=== PATIENT | male | born 1950 | race Caucasian/White ===

== ENCOUNTER 2019-09-30 15:44 | Emergency (ER) | payer MEDICARE, OTHER, SELFPAY ==
[2019-09-30 16:21] VITALS: TEMP 37.1; BMI 29.6
[2019-09-30 16:48] LABS: Basophils % 0.3 %; Hematocrit 43.6 % (42.0-52.0); Hemoglobin 14.6 g/dL (11.7-16.6); Lymphocytes # 0.2 10^3/uL (0.8-4.8); Lymphocytes % 2.9 %; Mean Corpuscular HGB Conc 33.5 g/dL (30.0-36.0); Mean Corpuscular Hemoglobin 28.6 pg (28.0-34.0); Mean Corpuscular Volume 85.3 fL (80-94); Mean Platelet Volume 9.4 fL (7.4-10.4); Monocytes # 0.3 10^3/uL (0.2-0.9); Monocytes % 3.6 %; Neutrophils # 6.4 10^3/uL (1.8-7.7); Neutrophils % 92.8 %; Nucleated Red Blood Cells % 0 %; Platelet Count 208 10^3/cmm (130-400); Red Blood Count 5.11 10^6/uL (4.1-5.3); Red Cell Distribution Width 12.8 % (12.1-15.1); White Blood Count 6.9 10^3/uL (4.0-10.0)
[2019-09-30 17:04] LABS: Alanine Aminotransferase 22 U/L (0-41); Albumin Level 4.9 g/dL (3.5-5.2); Alkaline Phosphatase 88 IU/L (40-130); Anion Gap 19.1 (5-19); Aspartate Amino Transferase 19 U/L (0-40); Blood Urea Nitrogen 27 mg/dL (8-23); Calcium 9.9 mg/dL (8.5-10.5); Carbon Dioxide 25 mmol/L (22-29); Chloride 99 mmol/L (98-107); Globulin 3.4 g/dL (1.3-4.6); Glomerular Filtration Rate 46.4 mL/min (90-130); Glucose 199 mg/dL (74-106); Lipase 20 U/L (13-60); Potassium 5.1 mmol/L (3.5-5.1); Sodium 138 mmol/L (136-145); Total Bilirubin 0.7 mg/dL (0.15-1.2); Total Protein 8.3 g/dL (6.6-8.7)
[2019-09-30 19:07] VITALS: BP 134/78; PULSE 111; RESP 18; O2SAT 96
--- NOTE | 2019-09-30 19:11 | PC.NURSE ---
Patient reports that he has been sick for about 3 weeks with cough and congestion. Patient states that today he began to vomit and get dizzy. Patients reports they checked the patients blood pressure and his blood pressure was low so they called his PCP and they wanted him to go to the ER.
--- NOTE | 2019-09-30 19:31 | ECG_ITS ---
Measurements Intervals [place] Rate: 98 P: 41 [place]: 163 QRS: 64 QRSD: 98 T: 50 QT: 350 QTc: 447 SINUS RHYTHM No previous ECG available for comparison Electronically Signed On 10-01-2019 16:17:09 CUSTOMS AND BORDER PROTECTION OFFICER by Bayron Garzon M.D. [email or web address]
--- NOTE | 2019-09-30 19:32 | ED_ITS ---
HPI - General Adult General: Chief complaint: General Medical Stated complaint: n/v Time Seen by Provider: 09/30/19 19:24 History of Present Illness: HPI narrative: Patient has been feeling bad for the last 3 to 4 days start with a head cold and chest congestion for about 3 to 4 weeks. Then he had an episode of vomiting and a blood pressure was low we vomited couple more times said he had to come in. Feels better now. MD complaint: low blood pressure Onset (ago): hour(s) Associated symptoms: Reports nausea and vomiting; Deny chest pain, dyspnea, headache(s) or rash Review of Systems Const: Denies: fever, chills or body aches Eyes: Denies: change in vision or blurry vision ENMT: Reports: nasal congestion; Denies: throat pain Card: Denies: chest pain or shortness of breath on exertion Resp: Denies: shortness of breath, productive cough or non-productive cough GI: Reports: nausea and vomiting; Denies: abdominal pain : Denies: difficulty urinating Musc: Denies: extremity pain Skin/Breast: Denies: rash Neuro: Denies: headache Psych: Denies: anxiety or depression Arjun/Lymph: Denies: easy bruising PFSH ED PFSH: Statuses (acute, chronic, etc) shown below reflect problem list status as previously entered and may not be historically accurate Social History Smoking and tobacco status: never smoked Quit status (tobacco): has quit using tobacco Year quit tobacco: 2004 Alcohol intake: unknown Household members: spouse Marital status: Physical Exam Const: COMMON NORMALS: no apparent distress, average body habitus and oriented x3 HENMT: COMMON NORMALS: normocephalic HEAD & SCALP: normal to inspection and normocephalic FACE & SINUS: normal facial exam Eye: COMMON NORMALS: conjunctivae normal GENERAL EYE: normal appearance of both eyes CONJUNCTIVA: Yes conjunctivae normal Neck/C-Spine: COMMON NORMALS: no JVD Chest: COMMONS NORMALS: inspection of chest normal Resp: COMMON NORMALS: normal respiratory effort and clear to auscultation bilaterally AUSCULTATION: clear to auscultation bilaterally Cardio: COMMON NORMALS: no JVD, regular rate and regular rhythm RATE: regular rate RHYTHM: regular rhythm GI: COMMON NORMALS: normal to inspection, nondistended, normoactive bowel sounds Extremity: COMMON NORMALS: normal to inspection and full ROM Neuro: COMMON NORMALS: oriented x3 Course Vital Signs: Vital signs: Vital Signs Temperature 98.8 F 09/30/19 16:21 Pulse Rate 89 09/30/19 19:39 Respiratory Rate 15 09/30/19 19:35 Blood Pressure 124/72 09/30/19 19:39 Pulse Oximetry 95 09/30/19 19:35 [facility] - General Adult Lab Data: Labs: Lab Results 09/30/19 09/30/19 09/30/19 Range/Units 16:42 16:42 19:59 WBC 6.9 (4.0-10.0) 10^3/ uL RBC 5.11 (4.1-5.3) 10^6/u L Hgb 14.6 (11.7-16.6) g/dL Hct 43.6 (42.0-52.0) % MCV 85.3 (80-94) fL MCH 28.6 (28.0-34.0) pg MCHC 33.5 (30.0-36.0) g/dL RDW 12.8 (12.1-15.1) % Plt Count 208 (130-400) 10^3/c mm MPV 9.4 (7.4-10.4) fL Neut % (Auto) 92.8 % Lymph % (Auto) 2.9 % [place] % (Auto) 3.6 % Eos % (Auto) 0.0 % Baso % (Auto) 0.3 % Neut # (Auto) 6.4 (1.8-7.7) 10^3/u L Lymph # (Auto) 0.2 L (0.8-4.8) 10^3/u L [place] # (Auto) 0.3 (0.2-0.9) 10^3/u L Eos # (Auto) 0.0 (0.0-0.8) 10^3/u L Baso # (Auto) 0.0 (0.0-0.1) 10^3/u L Nucleated RBC % (a uto) 0 % Nucleated RBCs # 0.0 /100WBC Sodium 138 (136-145) mmol/L Potassium 5.1 (3.5-5.1) mmol/L Chloride 99 (98-107) mmol/L Carbon Dioxide 25 (22-29) mmol/L Anion Gap 19.1 H (5-19) BUN 27 H (8-23) mg/dL Creatinine 1.5 H (0.7-1.2) mg/dL GFR Calculation 46.4 L (90-130) mL/min Glucose 199 H (74-106) mg/dL Calcium 9.9 (8.5-10.5) mg/dL Total Bilirubin 0.7 (0.15-1.2) mg/dL AST 19 (0-40) U/L ALT 22 (0-41) U/L Alkaline Phosphata se 88 (40-130) IU/L Total Protein 8.3 (6.6-8.7) g/dL Albumin 4.9 (3.5-5.2) g/dL Globulin 3.4 (1.3-4.6) g/dL Lipase 20 (13-60) U/L Urine Color Yellow (Yellow) Urine Appearance Clear (CLEAR) Urine pH 5 (5-7) Ur Specific Gravit y 1.020 (1.005-1.030) Urine Protein Neg (Negative) Urine Glucose (UA) Norm (Normal) Urine Ketones 1+ H (Negative) Urine Occult Blood Neg (Negative) Urine Nitrate Negative (Negative) Urine Bilirubin Neg (NEGATIVE) Urine Urobilinogen Norm (Negative) mg/dL Ur Leukocyte Idalmis ase Negative (Negative) EKG Data^: EKG 1: EKG interpretation date: 09/30/19 EKG interpretation time: 20:21 Interpretation: NSR, 98bpm Discharge Plan Discharge Prescriptions: No Action ranolazine [Ranexa] 500 mg tablet extended release 12 hr 500 mg PO BID RF: 0 isosorbide mononitrate 30 mg tablet extended release 24 hr 30 mg PO QDAY 90 Days Qty: 90 RF: 3 cetirizine [All Day Allergy (cetirizine)] 10 mg tablet 10 mg PO DAILY RF: 0 metformin 500 mg tablet extended release 24hr 2,000 mg PO DAILY RF: 0 simvastatin 40 mg tablet 40 mg PO .Bedtime RF: 0 clopidogrel 75 mg tablet 75 mg PO DAILY RF: 0 fluticasone propionate [Allergy Relief (fluticasone)] 50 mcg/actuation spray,suspension 2 spray INTRANASAL DAILY RF: 0 montelukast 10 mg tablet 10 mg PO DAILY RF: 0 olopatadine [Pataday] 0.2 % drops 1 drop ophthalmic (eye) QAM RF: 0 lisinopril 2.5 mg tablet 2.5 mg PO DAILY RF: 0 tamsulosin 0.4 mg capsule 0.4 mg PO .Bedtime RF: 0 Tradjenta 5 mg tablet 5 mg PO QAM RF: 0 Coding Level of Care Code ED Jewel Diameter Gauger for Chg Fwd Exam Problem Focused
--- NOTE | 2019-09-30 19:34 | XR_ITS ---
WS: [id number] PORTABLE CHEST HISTORY: Hypotension. COMPARISON: None available. Lungs are clear and well expanded. No pleural effusion or pneumothorax. Cardiac size: Normal. Mediastinum/Aorta: Normal mediastinum. No osseous abnormality seen. XR/XR chest 1V portable [id number] IMPRESSION: Unremarkable portable chest.
[2019-09-30 19:35] VITALS: BP 120/80; PULSE 100; RESP 15; O2SAT 95
[2019-09-30 19:39] VITALS: BP 112/69; BP 121/74; BP 124/72; PULSE 119; PULSE 126; PULSE 89
[2019-09-30 20:05] LABS: Lactate (Lactic Acid level) 2.3 mmol/L (0.5-2.2)
[2019-09-30 20:09] LABS: Add Urine Microscopic? NO
[2019-09-30 20:18] LABS: Bilirubin Urine Neg (NEGATIVE); Blood Urine Neg (Negative); Glucose Urine UA Norm (Normal); Ketones Urine 1+ (Negative); Leukocyte Esterase Urine Negative (Negative); Nitrate Urine Negative (Negative); Protein Urine Neg (Negative); Urine Appearance Clear (CLEAR); Urine Color Yellow (Yellow); Urobilinogen Urine Norm (Negative); pH Urine 5 (5-7)
[2019-09-30 20:27] LABS: Troponin T (5th) Once 18 ng/mL (0-15)
[2019-09-30 20:35] LABS: Lipase 15 U/L (13-60)
[2019-09-30] MEDS: sulfamethoxazole-trimeth DS 160-800 mg Tablet 1 TAB PO (21:23)
[2019-09-30 21:25] VITALS: BP 111/54; PULSE 97; RESP 16; TEMP 37; O2SAT 96
[2019-09-30 21:44] VITALS: BP 111/54; PULSE 97; RESP 16; TEMP 37; O2SAT 96
== END 2019-09-30 21:27 | disposition home or self-care (01) ==
PROVIDERS: Emergency Medicine; Emergency Provider Nurse Practitioner Family; Family Provider Nurse Practitioner Family; PCP Nurse Practitioner Family
DX: R09.89 Other specified symptoms and signs involving the circulatory and respiratory systems (principal); Z79.02 Long term (current) use of antithrombotics/antiplatelets; Z79.84 Long term (current) use of oral hypoglycemic drugs; Z87.891 Personal history of nicotine dependence
CPT/HCPCS: 36415; 71045; 80053; 81003; 83605; 83690; 84484; 85025; 93005; 99282

== ENCOUNTER → 2019-11-05 11:06 | Outpatient (BNVA) | payer OTHER, MEDICARE, SELFPAY | PROVIDERS: Visit Provider Family Medicine | DX: E11.9 Type 2 diabetes mellitus without complications (principal) | CPT/HCPCS: 80053; 80061; 82044; 83036; 85025 ==

== ENCOUNTER → 2020-03-11 09:42 | Outpatient (BNVA) | payer MEDICARE, OTHER, SELFPAY | PROVIDERS: Visit Provider Nurse Practitioner Family | DX: E11.9 Type 2 diabetes mellitus without complications (principal); Z79.4 Long term (current) use of insulin | CPT/HCPCS: 80053; 80061; 83036; 85025 ==

== ENCOUNTER → 2020-04-14 11:30 | Outpatient (BNVA) | payer MEDICARE, OTHER, SELFPAY | PROVIDERS: PCP Nurse Practitioner Family; Visit Provider Nurse Practitioner Family | DX: E11.22 Type 2 diabetes mellitus with diabetic chronic kidney disease; N18.3 Chronic kidney disease, stage 3 (moderate); Z79.4 Long term (current) use of insulin | CPT/HCPCS: 80053 ==

== ENCOUNTER → 2020-04-22 08:51 | Outpatient (BNVA) | payer MEDICARE, OTHER, SELFPAY | PROVIDERS: PCP Nurse Practitioner Family; Referring Provider Nurse Practitioner Family; Visit Provider Internal Medicine | DX: E11.8 Type 2 diabetes mellitus with unspecified complications (principal); I10 Essential (primary) hypertension; E11.22 Type 2 diabetes mellitus with diabetic chronic kidney disease; N18.3 Chronic kidney disease, stage 3 (moderate); E78.5 Hyperlipidemia, unspecified; E66.9 Obesity, unspecified; Z59.6 Low income; E11.59 Type 2 diabetes mellitus with other circulatory complications; I25.10 Atherosclerotic heart disease of native coronary artery without angina pectoris | CPT/HCPCS: 99204 ==

== ENCOUNTER 2020-04-27 09:09 | Observation (INO) | payer MEDICARE, OTHER, SELFPAY ==
[2020-04-24 07:30] LABS: Anion Gap 14.9 (5-19); Basophils % 0.7 %; Blood Urea Nitrogen 26 mg/dL (8-23); Calcium 9.1 mg/dL (8.5-10.5); Carbon Dioxide 25 mmol/L (22-29); Chloride 101 mmol/L (98-107); Eosinophils % 0.3 %; Glomerular Filtration Rate 40.2 mL/min (90-130); Glucose 275 mg/dL (65-115); Hematocrit 39.6 % (42.0-52.0); Hemoglobin 13.4 g/dL (11.7-16.6); Lymphocytes # 1.2 10^3/uL (0.8-4.8); Mean Corpuscular HGB Conc 33.8 g/dL (30.0-36.0); Mean Corpuscular Hemoglobin 29.7 pg (28.0-34.0); Mean Corpuscular Volume 87.8 fL (80-94); Mean Platelet Volume 10.4 fL (7.4-10.4); Monocytes # 0.5 10^3/uL (0.2-0.9); Monocytes % 7.9 %; Neutrophils # 4.28 10^3/uL (1.8-7.7); Neutrophils % 70.6 %; Nucleated Red Blood Cells % 0 %; Osmolality Calculated 291 mOsm/kg (285-295); Platelet Count 243 10^3/cmm (130-400); Potassium 3.9 mmol/L (3.5-5.1); Red Blood Count 4.51 10^6/uL (4.1-5.3); Sodium 137 mmol/L (136-145); White Blood Count 6.1 10^3/uL (4.0-10.0)
[2020-04-27] VITALS (18 sets, daily range): BP systolic 98–151; BP diastolic 61–82; PULSE 56–79; RESP 12–23; TEMP 36.6; O2SAT 93–98; BMI 30.4
--- NOTE | 2020-04-27 07:30 | XACV_ITS ---
Ht: 173 cm Wt: 89 kg BSA: 2.09 m2 Gender: Male : 1950 Any Known Allergies: No known allergies Exam Priority: Routine Procedure(s): Procedure Description: Diagnostic procedure Procedure Description: Left Heart Catheterization Procedure Description: Left ventriculography Procedure Description: Coronary Angiography Diagnostic Cath Status: Elective Diagnostic Findings The left main is a medium caliber vessel which appears to have around 30% narrowing in the distal segment. Mild diffuse calcification was noted in the artery. The left anterior descending artery is a medium caliber vessel which appears to wrap around the LV apex. The artery was found to have diffuse irregular narrowing ranging anywhere from 30 to 50%. Around the LV apex, there was a high-grade lesion of around 95%. The left and descending artery gives off small diagonal and septal perforators which are found to have moderate ostial narrowing.There is a high diagonal branch which also appears to have mild to moderate diffuse disease in the proximal segment. There are multiple small diagonal and septal perforators which are found to have moderate ostial narrowing. There is a high diagonal branch(intermedius artery) which also appears to have mild to moderate diffuse disease in the proximal segment. It gives of a side branch which has diffuse narrowing from 50% proximally. The circumflex artery is a medium caliber vessel which was found to have an ostial narrowing of around 40%. It gives of a rudimentary AV groove branch. The first obtuse marginal branch was found to have around 50% tapering narrowing proximally. No other significant stenotic lesions were noted. The intermedius artery is a small caliber vessel with no significant stenotic lesions. The right coronary artery is a medium caliber dominant vessel which was found to have a long stented segment proximally. The distal end of the stented area was found to have around 40 to 50% in-stent narrowing . The distal artery was found to have 20 to 30% diffuse narrowing. No other significant stenotic lesions were noted. Conclusions This is a 69-year-old white male with history of coronary disease and previous PCI, presenting with exertional chest tightness/shortness of breath/fatigue. He had a myocardial perfusion imaging which revealed of some small areas of reversible defects. His symptoms are somewhat atypical. However in view of the ongoing symptoms, in order to further evaluate his coronary status, a cardiac catheterization was recommended. Patient underwent a left heart catheterization with left and right coronary angiogram today. He was found to have mild to moderate diffuse coronary artery disease. There was a high-grade lesion in the distal LAD, around the LV apex. The stented segment of the right coronary artery was found to be patent with 40 to 50% in-stent stenosis. LVEDP was 20 mmHg. Recommendations Continue current medical management and risk factor modification. Diagnostic RX Recommendation: medical therapy and/or counseling LV EDP: 20 mmHg Pressures Phase:Rest AO : 109 mmHg / 57 mmHg ( 80 mmHg ) @ 3:48:00 AM 118 mmHg / 35 mmHg ( 70 mmHg ) @ 3:48:00 AM 173 mmHg / 76 mmHg ( 97 mmHg ) @ 3:49:00 AM 113 mmHg / 88 mmHg ( 93 mmHg ) @ 3:53:00 AM LV : 128 mmHg / -2 mmHg / @ 3:48:00 AM 128 mmHg / -5 mmHg / @ 3:48:00 AM Valves Phase:DefaultPhase AV : 20.0 mmHg @ 9:05:30 AM AV Mean Gradient: 10.0 mmHg @ 9:05:30 AM Clinical Evaluation EBL: 5mL-10mL Procedural Details Procedure Consent Obtained. Pre-Procedure Time Out. Identified patient by full name and date of as verbalized by the patient/guarantor. Does the consent match the physician's order: Yes. Accurate & Complete Informed Consent: Yes. Inpatient/Outpatient History & Physical on Chart: Yes. If H&P is completed, is and addenduem needed: N/A; If yes, is the addendum complete: N/A. Visualize and Verify Site with Patient/Guarantor: N/A. Relevant Radiology Images available: Yes. Pre-op teaching completed and patient verbalized understanding. The risks, benefits, and alternatives of sedation and/or procedure were discussed by physician. The patient agrees to continue. Procedure started. Correct patient, site and procedure confirmed by cath team. PERRLA. Strong, equal hand loan officer bilaterally. Lungs clear x 5 lobes. IV Site on Arrival: 20 gauge in the left anticubital. IV Fluids: 0.9% NaCl at KVO. 0 mL infused prior to slab conditioner supervisor. Pre Procedural Pulses: bilateral dorsalis pedis was 1+. Pre Procedural Pulses: bilateral posterior tibial was 1+. Oxygen started at 2liters/min via nasal canula. right groin was prepped with chloroprep then draped in the usual sterile fashion. right radial was prepped with chloroprep then draped in the usual sterile fashion. Physician notified. Baseline sample Acquired. HR: 57 BPM. Physician arrived. Equipment: 6F - Radial. Cardiac Cath Pack. ACIST Manifold Kit Model BT 2000. Heparinized Saline (2 units/mL), 1000 mL bag. Physician scrubbed in. Immediate Pre-Procedure Time Out. Correct Patient: Yes; Correct Procedure: Yes; Correct Site: Yes; Correct Patient Position: Yes; Correct Supplies: Yes; Dried Flammable Prep: Yes; Blood Products Available: No;. Lidocaine 1% infiltrated to the right radial. Arterial access obtained. A 5 macedonian Rojelio catheter in over wire. EDP Sample taken: LV 128/-3,21; HR: 72 BPM; SpO2: 93%. Pullback taken: LV 128/-6,15; AO 109/57(80); Mean: 10mmHg, Peak to Peak: 20mmHg, SEP: 21sec/min; HR: 71 BPM; SpO2: 93%. Multiple views taken of left coronary artery. Catheter redirected to the RCA. Multiple views taken of right coronary artery. Catheter out. Dr. Issa scrubbed out to review films. Dr. Jean called. Dr. Jean arrived. A TR Band was successful obtaining hemostatsis at the Right Radial artery insertion site. TR band placed. Hemostasis obtained. Post Procedure: Pulses reassessed and unchanged. PERRLA. Strong, equal hand loan officer bilaterally. No VTE prophylaxis required. Medication's Wasted: Heparin = 1000 units. Medication's Wasted: Lidocaine 1% = 18 mL. Medication's Wasted: Nitro = 49.8 mg. Medication's Wasted: Other = benadryl 25 mg. Medication's Wasted: Other = fentanyl 25 mcg. Total IV fluids: 300 mL. Fluoro: 3:09. Vital chart was stopped. Contrast type used: Omnipaque 300 mgI/mL, 500 mL bottle. [id number]. Post-op diagnosis: single vessel disease. Complications: none. Estimated blood loss: 5mL-10mL. [facility] Clinical Fraility Score: 4: Vulnerable. 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 Chest Pain Symptom Assessment: Atypical Angina. Cardiovascular Instability: No. Procedure completed. Patient transferred by wheelchair to 1st floor. Site: Right Radial artery Sheath Size: 6 Fr Hemostasis Method: TR Band Hemostasis Success: Successful Procedure Medications Start: 8:36 AM Stop: 8:36 AM Medication: 0.9% Saline Amount: 250 ml Route: I.V. bolus Start: 8:38 AM Stop: 8:38 AM Medication: Versed Amount: 1 mg Route: I.V. Start: 8:38 AM Stop: 8:38 AM Medication: Fentanyl Amount: 50 mcg Route: I.V. Start: 8:41 AM Stop: 8:41 AM Medication: Benadryl Amount: 25 mg Route: I.V. Start: 8:44 AM Stop: 8:44 AM Medication: Verapamil Amount: 5 mg Route: I.A. Start: 8:44 AM Stop: 8:44 AM Medication: Nitrogylcerin Amount: 200 mcg Route: I.A. Start: 8:49 AM Stop: 8:49 AM Medication: Heparin Amount: 5000 units Route: I.V. Start: 8:50 AM Stop: 8:50 AM Medication: Versed Amount: 1 mg Route: I.V. I, the attending physician, have reviewed and verified all procedure medications. Yes, all medications given per verbal order History/Risk Factors Hypertension: Yes Dyslipidemia: Yes Diabetic Therapy: Oral Peripheral Arterial Disease (PAD): No Myocardial Infarction (NC): No Obesity: Yes Renal Disease: Yes Tobacco Use: Never Prior Interventions PCI: Yes CABG: No Valve Surgery: No Report Signatures Finalized by:Dr Ryan Issa MD [facility] on 04/27/2020 10:07:06 AM
--- NOTE | 2020-04-27 08:10 | PM.HP ---
Providers/Chief Complaint Admitting Physician: JAGJIT Issa Primary Care Provider: MAMTA Lee Chief Complaint: left heart cath History of Present Illness Manish Lamb is a 69 year old male with a history of atherosclerotic heart disease, high blood pressure, dyslipidemia and chronic kidney disease, is presenting with complaints of exertional chest tightness and shortness of breath. He had a myocardial perfusion imaging which revealed some small areas of reversible defect. In the beginning it was decided to treat him medically especially with his chronic kidney disease. But because of his ongoing symptoms, limiting his activities, for further evaluation of his coronary status, a cardiac catheterization was recommended. Patient denies any significant chest pain. His main symptom is dyspnea on exertion and chest tightness. He also has some easy fatigability. No fever, chills or cough. No other specific complaints. Review of Systems Narrative: CONSTITUTIONAL: No fever or chills. EYES: No blurring of vision or other visual disturbances lately. ENT: No hoarseness of voice, auditory disturbances or sore throat. CARDIOVASCULAR: As mentioned above. RESPIRATORY: Has some dyspnea on exertion. GASTROINTESTINAL: No hematemesis or melena. GENITOURINARY: No dysuria or hematuria. INTEGUMENTARY: No skin rashes or history of skin cancer. 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 HEMATOLOGIC: No bleeding disorders or significant anemia. ENDOCRINE: Type 2 diabetes MUSCULOSKELETAL: No recent joint pain or swelling. ALLERGY/IMMUNOLOGY: As mentioned above. Medications/Allergies Home Medications Medication Instructions Recorded Confirmed Last Taken Type olopatadine 0.2 % eye drops 1 drop OPHTHALMIC (EYE) QAM 09/02/19 04/23/20 Unknown History sulfamethoxazole 800 1 tab PO BID #20 tab 11/14/19 04/23/20 Unknown Rx mg-trimethoprim 160 mg tablet isosorbide mononitrate 30 mg 30 mg PO QDAY 90 Days #90 tab 12/06/19 04/23/20 Unknown Rx tablet,extended release 24 hr cetirizine 10 mg tablet 10 mg PO DAILY #90 tab 03/12/20 04/23/20 Unknown Rx clopidogrel 75 mg tablet 75 mg PO DAILY #90 tab 03/12/20 04/23/20 Unknown Rx fluticasone propionate 50 2 spray INTRANASAL DAILY #15.8 ml 03/12/20 04/23/20 Unknown Rx mcg/actuation nasal spray,suspension lisinopril 2.5 mg tablet 2.5 mg PO DAILY #90 tab 03/12/20 04/23/20 Unknown Rx montelukast 10 mg tablet 10 mg PO DAILY #90 tab 03/12/20 04/23/20 Unknown Rx tamsulosin 0.4 mg capsule 0.4 mg PO .Bedtime #90 cap 03/12/20 04/23/20 Unknown Rx atorvastatin 40 mg tablet 40 mg PO DAILY 90 Days #90 tab 03/23/20 04/23/20 Unknown Rx ranolazine 500 mg tablet,extended 500 mg PO BID 90 Days #180 tab 03/23/20 04/23/20 Unknown Rx release,12 hr liraglutide 0.6 mg/0.1 mL (18 mg/3 0.6 mg SUBCUT DAILY 90 Days #6 ml 04/22/20 04/23/20 Unknown Rx mL) subcutaneous pen injector glipizide 5 mg tablet, extended 5 mg PO BID #180 tab 04/23/20 Unknown Rx release 24 hr Allergies Allergy/AdvReac Type Severity Reaction Status Date / Time No Known Allergies Allergy Verified 04/24/20 08:55 PFSH Acute PFSH: Medical History Abnormal cardiovascular stress test Anemia, unspecified Atherosclerotic heart disease of [place] coronary artery without angina pectoris Had PCI in the late ? Bite from insect Cancer of skin, squamous cell Chronic kidney disease, stage 3 (moderate) Pt was taken off the Metformin 3 days ago Colonoscopy refused Dizziness Dyslipidemia Essential (primary) hypertension Other fatigue Tachycardia Unspecified nonsuppurative otitis media, right ear Surgical History H/O angioplasty H/O hernia repair H/O vasectomy Family History Other Heart disease Social History Smoking and tobacco status: never smoked Quit status (tobacco): has quit using tobacco Year quit tobacco: 2004 Alcohol intake: unknown Household members: spouse Housing: House Marital status: Current occupational status: retired History of recent travel: No Current gender identity: Male Special regina needs: No Agree to transfusion: Yes Vitals/I&O/Wt Blood pressure 122/75 with a heart rate of 78/min. Respiratory rate of 16/min and he is afebrile Physical Exam Narrative: EXAM NARRATIVE: GENERAL: The patient is alert and oriented times three. Not in any acute distress. HEENT: No significant pallor, icterus or lymphadenopathy.Oral cavity: There are no mucous membrane lesions. NECK: Trachea appears to be central. No masses noted. No JVD or thyromegaly appreciated. RESPIRATORY: Chest is symmetrical. No intercostals muscle retraction or any accessory muscle activation. There is no chest wall tenderness. Breath sounds are heard bilaterally. No rales or rhonchi heard. No evidence of any consolidation. BREASTS: Deferred. HEART: The heart sounds are normal. No S3 or S4. Systolic murmur at the base of the heart. No pericardial rub ABDOMEN: No vessel pulsations or distention. No tenderness. No organomegaly appreciated. Bowel sounds are normally heard. : Deferred. RECTAL: Deferred. LYMPHATIC: No lymphadenopathy noted in the neck or groin. EXTREMITIES: No edema or cyanosis. No clubbing. Peripheral pulses are palpated in fairly good volume and amplitude MUSCULOSKELETAL: No acute joint deformities or swelling SKIN: There are no significant rashes or ecchymosis NEUROPSYCHIATRIC: The patient is alert and oriented x3. Appears to be in a good mood. No tremors or rigidity noted. Data : 04/23/20 15:44 04/23/20 15:44 A&P Assessment and plan (1) Atherosclerotic heart disease of [place] coronary artery with other forms of angina pectoris: In view of the patient's ongoing symptoms and the abnormal myocardial perfusion imaging, in order to further evaluate his coronary status, a cardiac catheterization would be appropriate. The risk of bleeding, hematoma, vascular injury, myocardial infarction, CVA, renal failure and other concomitant complications were explained in detail. In view of his chronic kidney disease, he has a high chance of contrast-induced nephropathy. This was discussed in detail with the patient and his family which they understood well and consented to proceed. Status: Acute (2) Essential (primary) hypertension: We will continue on the current medications. Optimize the antihypertensive medications. Status: Acute (3) Chronic kidney disease, stage 3 (moderate): Continue on the current medications. We will hydrate him appropriately. Status: Acute (4) Diabetes mellitus type 2 with complications: Continue on the current medication. Will be closely monitoring the blood sugar. Continue IV hydration Status: Acute Attestations Medical Necessity Statement*: Based on the cardiac catheterization data and the clinical response, further management decisions will be made. Coding Level of Care Code Acute Tax Processor for [employer] Fwd Diagnoses Atherosclerotic heart disease of [place] coronary artery with other forms of angina pectoris I25.118 Essential (primary) hypertension I10 Chronic kidney disease, stage 3 (moderate) N18.3 Diabetes mellitus type 2 with complications E11.8
[2020-04-27 08:17] LABS: INR 1.03 (0.8-1.2)
--- NOTE | 2020-04-27 08:17 | W.PM.OPSUD ---
Surgery/Procedure H&P Update DATE OF PROCEDURE: April 27, 2020 DATE H&P PERFORMED: 04/27/20 PRIMARY INDICATION FOR PROCEDURE: History of coronary artery disease, abnormal myocardial perfusion imaging, ongoing exertional chest tightness/shortness of breath PLANNED PROCEDURE: Operation Date: 04/27/20 08:30 Proposed Procedures p Cardiac Catheterization left(Left) - Ryan Issa MD PATIENT REASSESSED PRIOR TO SEDATION, WITH NO CHANGE NOTED: Yes PHYSICAL EXAM: alert, oriented x 3, clear to auscultation bilaterally and regular rate & rhythm AIRWAY EVAL/ANESTHESIA PLAN: normal airway, see other exam findings, ASA III, Local Anesthesia, Risks, benefits & alternatives of sedation and/or procedure discussed and Patient agrees to continue as planned
[2020-04-27 08:54] LABS: Anion Gap 14.4 (5-19); Blood Urea Nitrogen 21 mg/dL (8-23); Calcium 8.3 mg/dL (8.5-10.5); Carbon Dioxide 22 mmol/L (22-29); Chloride 104 mmol/L (98-107); Glomerular Filtration Rate 54.7 mL/min (90-130); Glucose 181 mg/dL (65-115); Osmolality Calculated 283 mOsm/kg (285-295); Potassium 4.4 mmol/L (3.5-5.1); Sodium 136 mmol/L (136-145)
--- NOTE | 2020-04-27 10:26 | PC.NURSE ---
Patient arrived to CSU from sugar laboratory assistant at 0911. Patient has a TR band in place to right radial artery/wrist. No bleeding or hematoma noted to site. 18 mL's of air in place in TR Band.
--- NOTE | 2020-04-27 11:51 | PC.NURSE ---
TR Band removed at 1150. Dressing in place, no s/s of bleeding or hematoma.
--- NOTE | 2020-04-27 12:13 | PC.CHAP ---
Pastoral Care Encounter/Spiritual Assessment Type of Contact [] Declined recovery room nurse visit [] Patient/Family/Request visit [] Outpatient visit [] Follow-up visit [] Physician referral [] Code/Alert [x] Routine visit [] Staff referral [] Actively dying [] Patient sleeping [] Family support [] [] Out of room [] Palliative care [] [] Receiving care in room [] Pre-surgical visit [] Trauma [] Long length of stay [] ICU visit [] Other: Relational/Emotional Strength [x] Patient feels connected with others/family/visitors/staff [] Distress [] Loneliness/isolation [] Abandonment Spirituality of Patient [x] Person of [place] [] Attends Zoroastrianism of their [place] [x] Believes in Prayer [] Reads Bible or Restorationism materials [] There are Spiritual issues to be addressed [place]man Interventions [x] Prayer [x] Active listening [x] Non-anxious presence [x] Spiritual/emotional support [] Crisis/trauma care [] Spiritual counseling [] Bereavement support [] Provided bereavement packet [] Provided Bible/devotional materials [] Provided toy/stuffed animal, coloring book to patient or family member [] Provided Communion [] Anointing/[place] [] Salvation [x] Completed spiritual assessment [] Other: Impact on Illness or Injury [] Angry [] Fearful [] Anxious [] Often cries [] Exhaustion [] Unable to work [] Unable to attend oriental orthodox [] Unable to walk/stand [] Unable to read [] Unable to drive [] Unable to eat/drink [] Unable to sleep [] Unable to be with family [] Patient intubated [] Other: Summary Chaplains Nimesh and Kaila Beckman prayed with Patient. Time spent with patient 8 minutes.
--- NOTE | 2020-04-27 13:49 | PC.NURSE ---
Patient discharged and transported via w/c to Surgical services exit to private vehicle with spouse. Discharge instructions, follow up appointments, and activity restrictions explained to patient and patient verbalized understanding. Patient denied any further questions about stay or procedures during hospital visit. Patients IV was removed, catheter tip intact, patient tolerated well.
--- NOTE | 2020-05-01 09:25 | PC.RESP ---
PATIENT DOES NOT HAVE A QUALIFYING HX OF LUNG DISEASE AND DOES NOT QUALIFY FOR PULMONARY REHAB AT THIS TIME.
== END 2020-04-27 13:45 | disposition home or self-care (01) ==
LOC: CSU 09:10
PROVIDERS: Admitting Provider Internal Medicine Cardiovascular Disease; PCP Nurse Practitioner Family; Visit Provider Internal Medicine Cardiovascular Disease
DX: I25.10 Atherosclerotic heart disease of native coronary artery without angina pectoris (principal); T82.855A Stenosis of coronary artery stent, initial encounter; Y83.8 Other surgical procedures as the cause of abnormal reaction of the patient, or of later complication, without mention of misadventure at the time of the procedure; E78.5 Hyperlipidemia, unspecified; I12.9 Hypertensive chronic kidney disease with stage 1 through stage 4 chronic kidney disease, or unspecified chronic kidney disease; E11.22 Type 2 diabetes mellitus with diabetic chronic kidney disease; N18.3 Chronic kidney disease, stage 3 (moderate); Z79.84 Long term (current) use of oral hypoglycemic drugs; Z87.891 Personal history of nicotine dependence
CPT/HCPCS: 12345; 36415; 80048; 85025; 85610; 93452; C1769; C1887; C1894; G0378; J1200; J1644; J2250; J3010; J3490; J7030; Q9967

== ENCOUNTER → 2020-05-04 11:14 | Outpatient (BNVA) | payer MEDICARE, OTHER, SELFPAY | PROVIDERS: PCP Nurse Practitioner Family; Visit Provider Nurse Practitioner Family | DX: I25.118 Atherosclerotic heart disease of native coronary artery with other forms of angina pectoris (principal) | CPT/HCPCS: 80048 ==

== ENCOUNTER → 2020-05-25 11:00 | Outpatient (BNVA) | payer MEDICARE, OTHER, SELFPAY | PROVIDERS: PCP Nurse Practitioner Family; Visit Provider Internal Medicine | DX: E11.22 Type 2 diabetes mellitus with diabetic chronic kidney disease (principal); N18.3 Chronic kidney disease, stage 3 (moderate); E11.59 Type 2 diabetes mellitus with other circulatory complications; I25.10 Atherosclerotic heart disease of native coronary artery without angina pectoris; E66.3 Overweight; E78.5 Hyperlipidemia, unspecified; I10 Essential (primary) hypertension; Z59.6 Low income | CPT/HCPCS: 99214 ==

== ENCOUNTER → 2020-09-08 10:03 | Outpatient (BNVA) | payer MEDICARE, OTHER, SELFPAY | PROVIDERS: PCP Nurse Practitioner Family; Visit Provider Internal Medicine | DX: E11.22 Type 2 diabetes mellitus with diabetic chronic kidney disease (principal); N18.30 Chronic kidney disease, stage 3 unspecified; E11.59 Type 2 diabetes mellitus with other circulatory complications; I25.10 Atherosclerotic heart disease of native coronary artery without angina pectoris; E66.3 Overweight; E78.5 Hyperlipidemia, unspecified; I10 Essential (primary) hypertension; Z59.6 Low income | CPT/HCPCS: 83036; 99214 ==

== ENCOUNTER 2020-12-03 11:33 | Outpatient (CLI) | payer MEDICARE, OTHER, SELFPAY ==
[2020-12-03 12:36] LABS: Estmated Average Glucose 171; Hemoglobin A1C 7.6 % (4.0-6.0)
[2020-12-03 12:43] LABS: Anion Gap 16.4 (5-19); Blood Urea Nitrogen 21 mg/dL (8-23); Calcium 9.3 mg/dL (8.5-10.5); Carbon Dioxide 23 mmol/L (22-29); Chloride 101 mmol/L (98-107); Glomerular Filtration Rate 50.1 mL/min (90-130); Glucose 142 mg/dL (65-115); Osmolality Calculated 287 mOsm/kg (285-295); Potassium 4.4 mmol/L (3.5-5.1); Sodium 136 mmol/L (136-145)
== END 2020-12-03 11:34 | disposition home or self-care (01) ==
LOC: LAB 11:38
PROVIDERS: PCP Nurse Practitioner Family; Visit Provider Internal Medicine
DX: E11.22 Type 2 diabetes mellitus with diabetic chronic kidney disease (principal); N18.30 Chronic kidney disease, stage 3 unspecified; E11.59 Type 2 diabetes mellitus with other circulatory complications; I25.10 Atherosclerotic heart disease of native coronary artery without angina pectoris; E66.9 Obesity, unspecified; E78.5 Hyperlipidemia, unspecified; I10 Essential (primary) hypertension; Z59.6 Low income
CPT/HCPCS: 36415; 80048; 83036; 99214

== ENCOUNTER → 2021-05-27 09:34 | Outpatient (BNVA) | payer MEDICARE, OTHER, SELFPAY | PROVIDERS: PCP Nurse Practitioner Family; Visit Provider Nurse Practitioner Family | DX: E11.22 Type 2 diabetes mellitus with diabetic chronic kidney disease (principal); I12.9 Hypertensive chronic kidney disease with stage 1 through stage 4 chronic kidney disease, or unspecified chronic kidney disease; Z12.5 Encounter for screening for malignant neoplasm of prostate; J30.9 Allergic rhinitis, unspecified; N18.31 Chronic kidney disease, stage 3a; E78.5 Hyperlipidemia, unspecified | CPT/HCPCS: 80053; 80061; 83036; 85025; G0103 ==

== ENCOUNTER → 2021-10-13 08:53 | Outpatient (BNVA) | payer MEDICARE, OTHER, SELFPAY | PROVIDERS: PCP Nurse Practitioner Family; Visit Provider Internal Medicine | DX: E11.22 Type 2 diabetes mellitus with diabetic chronic kidney disease (principal); E11.59 Type 2 diabetes mellitus with other circulatory complications; I25.10 Atherosclerotic heart disease of native coronary artery without angina pectoris; N18.31 Chronic kidney disease, stage 3a; E66.9 Obesity, unspecified; E66.3 Overweight; E78.2 Mixed hyperlipidemia; Z68.28 Body mass index [BMI] 28.0-28.9, adult | CPT/HCPCS: 80048; 83036; 99214 ==

== ENCOUNTER → 2021-11-16 09:51 | Outpatient (BNVA) | payer MEDICARE, OTHER, SELFPAY | PROVIDERS: PCP Nurse Practitioner Family; Visit Provider Internal Medicine Cardiovascular Disease | DX: I25.118 Atherosclerotic heart disease of native coronary artery with other forms of angina pectoris (principal); E66.3 Overweight; Z59.6 Low income; E11.8 Type 2 diabetes mellitus with unspecified complications; N18.30 Chronic kidney disease, stage 3 unspecified; I12.9 Hypertensive chronic kidney disease with stage 1 through stage 4 chronic kidney disease, or unspecified chronic kidney disease | CPT/HCPCS: 99214 ==

== ENCOUNTER → 2022-01-06 10:18 | Outpatient (BNVA) | payer MEDICARE, OTHER, SELFPAY | PROVIDERS: PCP Nurse Practitioner Family; Visit Provider Internal Medicine | DX: E11.59 Type 2 diabetes mellitus with other circulatory complications (principal); E11.22 Type 2 diabetes mellitus with diabetic chronic kidney disease; N18.31 Chronic kidney disease, stage 3a; I25.10 Atherosclerotic heart disease of native coronary artery without angina pectoris; E66.3 Overweight; E78.2 Mixed hyperlipidemia; Z79.84 Long term (current) use of oral hypoglycemic drugs; Z68.26 Body mass index [BMI] 26.0-26.9, adult | CPT/HCPCS: 99215 ==

== ENCOUNTER → 2022-01-10 09:52 | Outpatient (BNVA) | payer MEDICARE, OTHER, SELFPAY | PROVIDERS: PCP Nurse Practitioner Family; Visit Provider Internal Medicine | DX: E11.22 Type 2 diabetes mellitus with diabetic chronic kidney disease (principal); E78.2 Mixed hyperlipidemia; E78.5 Hyperlipidemia, unspecified | CPT/HCPCS: 80053; 80061; 83036 ==

== ENCOUNTER → 2022-04-05 10:11 | Outpatient (BNVA) | payer MEDICARE, OTHER, SELFPAY | PROVIDERS: PCP Nurse Practitioner Family; Visit Provider Internal Medicine | DX: E11.22 Type 2 diabetes mellitus with diabetic chronic kidney disease (principal); E11.59 Type 2 diabetes mellitus with other circulatory complications; N18.30 Chronic kidney disease, stage 3 unspecified; I25.10 Atherosclerotic heart disease of native coronary artery without angina pectoris; E78.2 Mixed hyperlipidemia; E66.3 Overweight; Z68.26 Body mass index [BMI] 26.0-26.9, adult; Z79.84 Long term (current) use of oral hypoglycemic drugs | CPT/HCPCS: 99214 ==

== ENCOUNTER → 2022-05-31 13:15 | Outpatient (BNVA) | payer MEDICARE, OTHER, SELFPAY | PROVIDERS: PCP Nurse Practitioner Family; Visit Provider Nurse Practitioner Family | DX: I12.9 Hypertensive chronic kidney disease with stage 1 through stage 4 chronic kidney disease, or unspecified chronic kidney disease (principal); N18.30 Chronic kidney disease, stage 3 unspecified; Z87.891 Personal history of nicotine dependence; I25.118 Atherosclerotic heart disease of native coronary artery with other forms of angina pectoris | CPT/HCPCS: 99213; 99214 ==

== ENCOUNTER → 2022-07-26 09:16 | Outpatient (BNVA) | payer OTHER, MEDICARE, SELFPAY | PROVIDERS: PCP Nurse Practitioner Family; Visit Provider Internal Medicine | DX: E78.2 Mixed hyperlipidemia (principal); E11.8 Type 2 diabetes mellitus with unspecified complications; I25.10 Atherosclerotic heart disease of native coronary artery without angina pectoris | CPT/HCPCS: 80061; 83036 ==

== ENCOUNTER → 2022-08-01 08:34 | Outpatient (BNVA) | payer MEDICARE, OTHER, SELFPAY | PROVIDERS: PCP Nurse Practitioner Family; Visit Provider Internal Medicine | DX: E11.22 Type 2 diabetes mellitus with diabetic chronic kidney disease (principal); E11.59 Type 2 diabetes mellitus with other circulatory complications; N18.30 Chronic kidney disease, stage 3 unspecified; I25.10 Atherosclerotic heart disease of native coronary artery without angina pectoris; E78.2 Mixed hyperlipidemia; E66.3 Overweight; R21 Rash and other nonspecific skin eruption; Z87.891 Personal history of nicotine dependence; Z68.27 Body mass index [BMI] 27.0-27.9, adult; Z79.84 Long term (current) use of oral hypoglycemic drugs | CPT/HCPCS: 99214 ==

== ENCOUNTER → 2022-08-11 09:52 | Outpatient (BNVA) | payer MEDICARE, OTHER, SELFPAY | PROVIDERS: PCP Nurse Practitioner Family; Visit Provider Nurse Practitioner Family | DX: I10 Essential (primary) hypertension (principal); Z12.5 Encounter for screening for malignant neoplasm of prostate; R05.9 Cough, unspecified | CPT/HCPCS: 71046; 80053; 85025; G0103 ==

== ENCOUNTER → 2022-09-26 10:05 | Outpatient (BNVA) | payer MEDICARE, OTHER, SELFPAY | PROVIDERS: PCP Nurse Practitioner Family; Visit Provider Nurse Practitioner Family | DX: R74.8 Abnormal levels of other serum enzymes (principal) | CPT/HCPCS: 80076 ==

== ENCOUNTER → 2022-11-01 10:14 | Outpatient (BNVA) | payer MEDICARE, OTHER, SELFPAY | PROVIDERS: PCP Nurse Practitioner Family; Visit Provider Internal Medicine | DX: E11.22 Type 2 diabetes mellitus with diabetic chronic kidney disease (principal); E11.59 Type 2 diabetes mellitus with other circulatory complications; N18.30 Chronic kidney disease, stage 3 unspecified; I25.10 Atherosclerotic heart disease of native coronary artery without angina pectoris; E78.2 Mixed hyperlipidemia; Z79.84 Long term (current) use of oral hypoglycemic drugs | CPT/HCPCS: 99214 ==

== ENCOUNTER 2022-11-03 13:21 | Outpatient (CLI) | payer MEDICARE, OTHER, SELFPAY ==
--- NOTE | 2022-11-03 14:30 | US_ITS ---
WS: [id number] Complete ABDOMINAL ULTRASOUND HISTORY: R74.8 - Abnormal levels of other serum enzymes COMPARISON: 03/06/2009 Liver: 13.5 cm in length. Normal size liver. There is very minimal increased echogenicity and coarsen ing throughout the liver. No mass or bile duct dilatation. Portal Vein: Normal hepatopetal flow with monophasic waveform. Gallbladder: Normally distended with no gallstones, wall thickening or pericholecystic fluid. Pancreas: Limited visualization. CBD: 0.3 cm. Right kidney: 10.2 cm x 4.9 cm x 4.8 cm. No mass, cortical thickening or hydronephrosis. Left kidney: 10.0 cm x 3.9 cm x 5.3 cm. No mass, cortical thickening or hydronephrosis. Spleen: Normal size and echogenicity. Abdominal aorta and IVC are within normal limits. No ascites. US/US abdomen complete* [id number] IMPRESSION: 1. Normal gallbladder. 2. No bile duct dilatation. 3. Very slight coarse echotexture to the liver. Consider mild hepatocellular d isease.
== END 2022-11-03 13:22 | disposition home or self-care (01) ==
PROVIDERS: PCP Nurse Practitioner Family; Visit Provider Nurse Practitioner Family
DX: R74.8 Abnormal levels of other serum enzymes (principal)
CPT/HCPCS: 76700

== ENCOUNTER → 2022-11-29 13:33 | Outpatient (BNVA) | payer MEDICARE, OTHER, SELFPAY | PROVIDERS: PCP Nurse Practitioner Family; Visit Provider Internal Medicine Cardiovascular Disease | DX: I25.118 Atherosclerotic heart disease of native coronary artery with other forms of angina pectoris (principal); E78.5 Hyperlipidemia, unspecified; I12.9 Hypertensive chronic kidney disease with stage 1 through stage 4 chronic kidney disease, or unspecified chronic kidney disease; E11.22 Type 2 diabetes mellitus with diabetic chronic kidney disease; N18.30 Chronic kidney disease, stage 3 unspecified; Z87.891 Personal history of nicotine dependence; Z79.84 Long term (current) use of oral hypoglycemic drugs | CPT/HCPCS: 99214 ==

== ENCOUNTER → 2022-12-28 10:08 | Outpatient (BNVA) | payer MEDICARE, OTHER, SELFPAY | PROVIDERS: PCP Nurse Practitioner Family; Visit Provider Nurse Practitioner Family | DX: E11.8 Type 2 diabetes mellitus with unspecified complications (principal) | CPT/HCPCS: 80053; 80061; 82043; 83036; 84443; 85025 ==

== ENCOUNTER → 2023-02-02 10:26 | Outpatient (BNVA) | payer MEDICARE, OTHER, SELFPAY | PROVIDERS: PCP Nurse Practitioner Family; Visit Provider Internal Medicine | DX: E11.22 Type 2 diabetes mellitus with diabetic chronic kidney disease (principal); E11.59 Type 2 diabetes mellitus with other circulatory complications; N18.30 Chronic kidney disease, stage 3 unspecified; I25.10 Atherosclerotic heart disease of native coronary artery without angina pectoris; E78.2 Mixed hyperlipidemia; Z79.84 Long term (current) use of oral hypoglycemic drugs | CPT/HCPCS: 99214 ==

== ENCOUNTER → 2023-04-24 09:14 | Outpatient (BNVA) | payer MEDICARE, OTHER, SELFPAY | PROVIDERS: PCP Nurse Practitioner Family; Visit Provider Nurse Practitioner Family | DX: E11.8 Type 2 diabetes mellitus with unspecified complications (principal); E11.22 Type 2 diabetes mellitus with diabetic chronic kidney disease; R74.8 Abnormal levels of other serum enzymes | CPT/HCPCS: 80053; 80061; 80076; 81003; 82043; 82977; 83036; 84443; 85025 ==

== ENCOUNTER → 2023-05-09 10:23 | Outpatient (BNVA) | payer MEDICARE, OTHER, SELFPAY | PROVIDERS: PCP Nurse Practitioner Family; Visit Provider Internal Medicine | DX: E11.22 Type 2 diabetes mellitus with diabetic chronic kidney disease (principal); E78.2 Mixed hyperlipidemia; E11.59 Type 2 diabetes mellitus with other circulatory complications; I25.10 Atherosclerotic heart disease of native coronary artery without angina pectoris; R74.8 Abnormal levels of other serum enzymes; Z13.820 Encounter for screening for osteoporosis; M81.0 Age-related osteoporosis without current pathological fracture; N18.30 Chronic kidney disease, stage 3 unspecified; Z79.84 Long term (current) use of oral hypoglycemic drugs | CPT/HCPCS: 99214 ==

== ENCOUNTER 2023-05-15 14:08 | Outpatient (CLI) | payer MEDICARE, OTHER, SELFPAY ==
--- NOTE | 2023-05-15 14:30 | XR_ITS ---
WS: [id number] DEXA (DUAL ENERGY X-RAY ABSORPTIOMETRY) Bone mineral density was performed using a [employer] machine. HISTORY: screening for osteoporosis COMPARISON: None available. Lumbar spine BMD (L1-L4): 1.502 g/cm2 T score: 2.3 Z score: 3.0 Total hip BMD: Left: 0.911 g/cm2. T score: -1.3 Z score: -0.5 Right: 0.903 g/cm2. T score: -1.4 Z score: -0.5 10 year probability of a major osteoporotic fracture is 8.2%. IMPRESSION: OSTEOPENIA. Male patient.
== END 2023-05-15 14:09 | disposition home or self-care (01) ==
LOC: RAD 14:12
PROVIDERS: PCP Nurse Practitioner Family; Visit Provider Internal Medicine
DX: Z13.820 Encounter for screening for osteoporosis (principal); M81.0 Age-related osteoporosis without current pathological fracture; M85.80 Other specified disorders of bone density and structure, unspecified site
CPT/HCPCS: 77080

== ENCOUNTER → 2023-06-20 13:19 | Outpatient (BNVA) | payer MEDICARE, OTHER, SELFPAY | PROVIDERS: PCP Nurse Practitioner Family; Visit Provider Internal Medicine Cardiovascular Disease | DX: I25.10 Atherosclerotic heart disease of native coronary artery without angina pectoris (principal); E78.5 Hyperlipidemia, unspecified; I12.9 Hypertensive chronic kidney disease with stage 1 through stage 4 chronic kidney disease, or unspecified chronic kidney disease; E11.22 Type 2 diabetes mellitus with diabetic chronic kidney disease; N18.31 Chronic kidney disease, stage 3a; Z87.891 Personal history of nicotine dependence; Z79.84 Long term (current) use of oral hypoglycemic drugs | CPT/HCPCS: 99214 ==

== ENCOUNTER → 2023-08-01 08:49 | Outpatient (BNVA) | payer MEDICARE, OTHER, SELFPAY | PROVIDERS: PCP Nurse Practitioner Family; Visit Provider Nurse Practitioner Family | DX: E78.2 Mixed hyperlipidemia (principal); E11.22 Type 2 diabetes mellitus with diabetic chronic kidney disease; E11.59 Type 2 diabetes mellitus with other circulatory complications; I25.10 Atherosclerotic heart disease of native coronary artery without angina pectoris; E11.8 Type 2 diabetes mellitus with unspecified complications; R74.8 Abnormal levels of other serum enzymes; Z13.820 Encounter for screening for osteoporosis; J30.2 Other seasonal allergic rhinitis; N40.1 Benign prostatic hyperplasia with lower urinary tract symptoms; N39.43 Post-void dribbling; M25.519 Pain in unspecified shoulder; N52.9 Male erectile dysfunction, unspecified | CPT/HCPCS: 80053; 80061; 82043; 83036 ==

== ENCOUNTER → 2023-08-07 08:17 | Outpatient (BNVA) | payer MEDICARE, OTHER, SELFPAY | PROVIDERS: PCP Nurse Practitioner Family; Visit Provider Internal Medicine | DX: E11.59 Type 2 diabetes mellitus with other circulatory complications (principal); I25.10 Atherosclerotic heart disease of native coronary artery without angina pectoris; E78.2 Mixed hyperlipidemia; E11.22 Type 2 diabetes mellitus with diabetic chronic kidney disease; R74.8 Abnormal levels of other serum enzymes; Z13.820 Encounter for screening for osteoporosis; N18.30 Chronic kidney disease, stage 3 unspecified; Z79.84 Long term (current) use of oral hypoglycemic drugs; Z79.85 Long-term (current) use of injectable non-insulin antidiabetic drugs | CPT/HCPCS: 99214 ==

== ENCOUNTER → 2023-10-31 08:45 | Outpatient (BNVA) | payer MEDICARE, OTHER, SELFPAY | PROVIDERS: PCP Nurse Practitioner Family; Visit Provider Internal Medicine | DX: E11.59 Type 2 diabetes mellitus with other circulatory complications (principal); I25.10 Atherosclerotic heart disease of native coronary artery without angina pectoris | CPT/HCPCS: 80053; 80061; 82043; 83036 ==

== ENCOUNTER → 2023-11-07 10:13 | Outpatient (BNVA) | payer MEDICARE, OTHER, SELFPAY | PROVIDERS: PCP Nurse Practitioner Family; Visit Provider Internal Medicine | DX: E11.59 Type 2 diabetes mellitus with other circulatory complications (principal); I25.10 Atherosclerotic heart disease of native coronary artery without angina pectoris; E78.2 Mixed hyperlipidemia; E11.22 Type 2 diabetes mellitus with diabetic chronic kidney disease; R74.8 Abnormal levels of other serum enzymes; Z13.820 Encounter for screening for osteoporosis; N18.30 Chronic kidney disease, stage 3 unspecified; Z79.85 Long-term (current) use of injectable non-insulin antidiabetic drugs | CPT/HCPCS: 99214 ==

== ENCOUNTER → 2024-01-15 13:25 | Outpatient (BNVA) | payer MEDICARE, OTHER, SELFPAY | PROVIDERS: PCP Nurse Practitioner Family; Visit Provider Internal Medicine Cardiovascular Disease | DX: I25.10 Atherosclerotic heart disease of native coronary artery without angina pectoris (principal); E78.5 Hyperlipidemia, unspecified; R10.31 Right lower quadrant pain; I12.9 Hypertensive chronic kidney disease with stage 1 through stage 4 chronic kidney disease, or unspecified chronic kidney disease; E11.22 Type 2 diabetes mellitus with diabetic chronic kidney disease; N18.30 Chronic kidney disease, stage 3 unspecified; Z87.891 Personal history of nicotine dependence | CPT/HCPCS: 99214 ==

== ENCOUNTER 2024-01-25 09:33 | Outpatient (CLI) | payer MEDICARE, OTHER, SELFPAY ==
--- NOTE | 2024-01-25 10:15 | USCV_ITS ---
Manish Lamb Age: 73 Gender: M : 1950 Exam Date: 01/25/2024 09:53 Ordering Phys: Ryan Issa MD ([email or web address]) Technologist: ANALISA Exam Location: [facility] [place] Indication: RIGHT GROIN PAIN AND SWELLING Findings A hypoechoic area measuring 6.3 x 3.0 cm with some echogenicity of the center. No blood flow was noted in this area. Normal femoral arterial flow pattern with no evidence of any aneurysm. Femoral vein was found to be easily compressible with no evidence of DVT Conclusions 1. Possible resolving hematoma in the right groin, measuring 6.3 x 3.0 cm 2. The common femoral artery in this area appears to have normal flow pattern with no evidence of aneurysm. 3. The adjacent femoral vein was found to have no evidence of thrombosis Dr Ryan Issa MD [facility] (Electronically Signed) Final Date: 26 Jan 2024 08:36 S
== END 2024-01-25 09:34 | disposition home or self-care (01) ==
LOC: RAD 09:36
PROVIDERS: PCP Nurse Practitioner Family; Visit Provider Internal Medicine Cardiovascular Disease
DX: I25.10 Atherosclerotic heart disease of native coronary artery without angina pectoris (principal)
CPT/HCPCS: 93926

== ENCOUNTER → 2024-01-26 09:16 | Outpatient (BNVA) | payer MEDICARE, OTHER, SELFPAY | PROVIDERS: PCP Nurse Practitioner Family; Visit Provider Internal Medicine | DX: E78.2 Mixed hyperlipidemia (principal); E11.22 Type 2 diabetes mellitus with diabetic chronic kidney disease; R74.8 Abnormal levels of other serum enzymes | CPT/HCPCS: 80053; 80061; 82043; 83036 ==

== ENCOUNTER → 2024-02-07 09:46 | Outpatient (BNVA) | payer MEDICARE, OTHER, SELFPAY | PROVIDERS: PCP Nurse Practitioner Family; Visit Provider Internal Medicine | DX: E11.22 Type 2 diabetes mellitus with diabetic chronic kidney disease (principal); E78.2 Mixed hyperlipidemia; E11.59 Type 2 diabetes mellitus with other circulatory complications; I25.10 Atherosclerotic heart disease of native coronary artery without angina pectoris; R74.8 Abnormal levels of other serum enzymes; Z13.820 Encounter for screening for osteoporosis | CPT/HCPCS: 99214 ==

== ENCOUNTER → 2024-07-29 09:42 | Outpatient (BNVA) | payer MEDICARE, OTHER, SELFPAY | PROVIDERS: PCP Nurse Practitioner Family; Visit Provider Internal Medicine | DX: I10 Essential (primary) hypertension (principal); Z12.5 Encounter for screening for malignant neoplasm of prostate; E11.22 Type 2 diabetes mellitus with diabetic chronic kidney disease; E78.2 Mixed hyperlipidemia; N18.30 Chronic kidney disease, stage 3 unspecified | CPT/HCPCS: 80053; 80061; 82043; 83036; 84443; 85025; G0103 ==

== ENCOUNTER → 2024-07-31 09:36 | Outpatient (BNVA) | payer MEDICARE, OTHER, SELFPAY | PROVIDERS: PCP Nurse Practitioner Family; Visit Provider Internal Medicine Cardiovascular Disease | DX: I25.10 Atherosclerotic heart disease of native coronary artery without angina pectoris (principal); E78.5 Hyperlipidemia, unspecified; I12.9 Hypertensive chronic kidney disease with stage 1 through stage 4 chronic kidney disease, or unspecified chronic kidney disease; N18.30 Chronic kidney disease, stage 3 unspecified; E11.22 Type 2 diabetes mellitus with diabetic chronic kidney disease | CPT/HCPCS: 99214 ==

== ENCOUNTER → 2024-08-09 09:53 | Outpatient (BNVA) | payer MEDICARE, OTHER, SELFPAY | PROVIDERS: PCP Nurse Practitioner Family; Visit Provider Internal Medicine | DX: E11.22 Type 2 diabetes mellitus with diabetic chronic kidney disease (principal); E78.2 Mixed hyperlipidemia; E03.8 Other specified hypothyroidism; E11.59 Type 2 diabetes mellitus with other circulatory complications; I25.10 Atherosclerotic heart disease of native coronary artery without angina pectoris; R74.8 Abnormal levels of other serum enzymes; Z13.820 Encounter for screening for osteoporosis | CPT/HCPCS: 99214 ==

== ENCOUNTER → 2024-09-02 08:27 | Outpatient (BNVA) | payer MEDICARE, OTHER, SELFPAY | PROVIDERS: PCP Nurse Practitioner Family; Visit Provider Nurse Practitioner Family | DX: G62.9 Polyneuropathy, unspecified (principal); I10 Essential (primary) hypertension | CPT/HCPCS: 82607; 84439; 84443 ==

== ENCOUNTER → 2024-11-06 09:38 | Outpatient (BNVA) | payer MEDICARE, OTHER, SELFPAY | PROVIDERS: PCP Nurse Practitioner Family; Visit Provider Internal Medicine | DX: E11.22 Type 2 diabetes mellitus with diabetic chronic kidney disease (principal); E78.2 Mixed hyperlipidemia; E03.8 Other specified hypothyroidism | CPT/HCPCS: 80053; 80061; 82043; 83036; 84439; 84443 ==

== ENCOUNTER → 2024-11-08 09:50 | Outpatient (BNVA) | payer MEDICARE, OTHER, SELFPAY | PROVIDERS: PCP Nurse Practitioner Family; Visit Provider Internal Medicine | DX: E11.22 Type 2 diabetes mellitus with diabetic chronic kidney disease (principal); E03.8 Other specified hypothyroidism; Z13.820 Encounter for screening for osteoporosis; R74.8 Abnormal levels of other serum enzymes; E11.8 Type 2 diabetes mellitus with unspecified complications; E78.2 Mixed hyperlipidemia; E11.59 Type 2 diabetes mellitus with other circulatory complications; I25.10 Atherosclerotic heart disease of native coronary artery without angina pectoris | CPT/HCPCS: 99214 ==

== ENCOUNTER → 2025-01-28 08:45 | Outpatient (BNVA) | payer MEDICARE, OTHER, SELFPAY | PROVIDERS: PCP Nurse Practitioner Family; Visit Provider Nurse Practitioner Family | DX: I25.10 Atherosclerotic heart disease of native coronary artery without angina pectoris (principal); I12.9 Hypertensive chronic kidney disease with stage 1 through stage 4 chronic kidney disease, or unspecified chronic kidney disease; E11.22 Type 2 diabetes mellitus with diabetic chronic kidney disease; N18.30 Chronic kidney disease, stage 3 unspecified; Z79.85 Long-term (current) use of injectable non-insulin antidiabetic drugs; E78.5 Hyperlipidemia, unspecified; Z87.891 Personal history of nicotine dependence | CPT/HCPCS: 99213 ==

== ENCOUNTER 2025-01-30 10:38 | Outpatient (CLI) | payer MEDICARE, OTHER, SELFPAY ==
--- NOTE | 2025-01-30 10:44 | XR_ITS ---
WS: [id number] Left hip, AP and frog-leg views, AP pelvis, 01/30/2025 Clinical Data: M25.552 - Pain in left hip Comparison: None. Findings: No fractures or dislocations are seen. The left hip shows narrowing with sclerosis of the acetabulum. There is no cyst formation or fragmentation of the left femoral head. The right hip shows mild osteoarthritis with an acetabular lip. The soft tissues are not remarkable. The adjacent pelvis is normal. There is osteoarthritis of the lower lumbar vertebral bodies. XR/XR hip LT 2-3V wo/w pel* [id number] Impression: 1. Mild osteoarthritis of both hips.
== END 2025-01-30 10:39 | disposition home or self-care (01) ==
PROVIDERS: PCP Nurse Practitioner Family; Visit Provider Nurse Practitioner Family
DX: M16.0 Bilateral primary osteoarthritis of hip (principal); S79.912A Unspecified injury of left hip, initial encounter; M47.896 Other spondylosis, lumbar region; X58.XXXA Exposure to other specified factors, initial encounter
CPT/HCPCS: 73502

== ENCOUNTER → 2025-02-04 08:48 | Outpatient (BNVA) | payer MEDICARE, OTHER, SELFPAY | PROVIDERS: PCP Nurse Practitioner Family; Visit Provider Internal Medicine | DX: E03.8 Other specified hypothyroidism (principal); E11.22 Type 2 diabetes mellitus with diabetic chronic kidney disease; Z13.820 Encounter for screening for osteoporosis; R74.8 Abnormal levels of other serum enzymes; E11.8 Type 2 diabetes mellitus with unspecified complications; E78.2 Mixed hyperlipidemia; E11.59 Type 2 diabetes mellitus with other circulatory complications; I25.10 Atherosclerotic heart disease of native coronary artery without angina pectoris | CPT/HCPCS: 80053; 80061; 82043; 83036; 84439; 84443 ==

== ENCOUNTER 2025-02-06 08:55 | Outpatient (CLI) | payer MEDICARE, OTHER, SELFPAY ==
--- NOTE | 2025-02-06 09:30 | MR_ITS ---
WS: [id number] MRI LEFT HIP WITHOUT CONTRAST. COMPARISON: Radiographs 01/30/2025 Multiplanar, multisequence imaging is performed without contrast. History: Injury LEFT groin 1 week ago. Patient slipped and fell. There is extensive marrow edema involving the bones of the LEFT hip. Large amount of marrow edema involving the entire acetabulum. Marrow edema extends into the femoral head and along the femoral neck to the level of the trochanters. There is low signal at several portions of the femoral head and the femoral neck. Soft tissue edema involving the muscles medial and external to the LEFT ilium. Large amount of edema within the distal iliopsoas muscle. Numerous cystic collections in the iliopsoas muscle anterior to the femoral head. Edema continues through the iliopsoas muscle to the tendon insertion site at the les ser trochanter. A normal tendon and muscle are not identified. Findings of high- grade iliopsoas tendon tear. Additional edema within the obturator externus muscle. There is a fluid collection between the LEFT pectineus muscle and the iliopsoas muscle over the femoral head. No sacral fracture. Urinary bladder is well distended. Prostate gland is enlarged and heterogeneous. Bilateral narrowing of the femoral hips. Acetabular and osteophytic ridging. MR/MR hip LT wo con* [id number] IMPRESSION: 1. There is extensive soft tissue and marrow edema surrounding the LEFT hip fr om the recent trauma. 2. Marrow edema in the acetabulum and femoral head and neck. Recommend follow- up CT LEFT hip at this time to exclude occult fracture. Femoral neck fracture i s not excluded. Acetabular fracture also may be present due to the extensive alanna ne contusion. 3. Torn iliopsoas tendon and muscle from the lesser trochanter. Extensive soft tissue injury of the iliopsoas muscle. 4. Additional edema throughout the obturator externus muscle. 5. Small fluid collection between the LEFT pectineus muscle and the iliopsoas muscle over the humeral head is probably related to the trauma and iliopsoas te ar. Notified JOSEPH Escobar at 02/07/2025 8:08 AM. Cynthia Coates was not available. D iscussed report with Betsy Moreno and recommended LEFT hip CT at this time.
== END 2025-02-06 08:56 | disposition home or self-care (01) ==
PROVIDERS: PCP Nurse Practitioner Family; Visit Provider Nurse Practitioner Family
DX: S79.912A Unspecified injury of left hip, initial encounter (principal); M25.552 Pain in left hip; X58.XXXA Exposure to other specified factors, initial encounter
CPT/HCPCS: 73721

== ENCOUNTER 2025-02-07 11:28 | Outpatient (CLI) | payer MEDICARE, OTHER, SELFPAY ==
--- NOTE | 2025-02-07 13:00 | CT_ITS ---
WS: [id number] Noncontrast CT LEFT hip TECHNIQUE: Noncontrast CT LEFT hip with coronal and sagittal reformatted images. CLINICAL INFORMATION: M25.552 - Pain in left hip COMPARISON: MRI 02/06/2025 DLP: 259.[address] scans at [facility] use at least one of these dose optimization techniques: automated exposure control; mA and/or kV adjustment per patient size (includes targeted exams where dose is matched to clinical indication); or iterative reconstruction. FINDINGS: Moderate to advanced joint narrowing LEFT hip. Subchondral sclerosis in the acetabulum. Small amount of subchondral cystic change. Hypertrophic changes along the joint line. No acute femoral head or neck fractures. Normal visualized LEFT pubic rami. No acetabular fractures. Degenerative arthritis pubic symphysis. Vascular calcification. Partially visualized enlarged prostate with calcification. Sigmoid diverticulosis. Tear of the iliopsoas as discussed on MRI. CT/CT hip LT wo con* [id number] IMPRESSION: No acute fractures
== END 2025-02-07 11:29 | disposition home or self-care (01) ==
LOC: RAD 11:28
PROVIDERS: PCP Nurse Practitioner Family; Visit Provider Nurse Practitioner Family
DX: M16.12 Unilateral primary osteoarthritis, left hip (principal); M85.852 Other specified disorders of bone density and structure, left thigh; E11.22 Type 2 diabetes mellitus with diabetic chronic kidney disease; E03.8 Other specified hypothyroidism; E78.2 Mixed hyperlipidemia; E11.59 Type 2 diabetes mellitus with other circulatory complications; N40.1 Benign prostatic hyperplasia with lower urinary tract symptoms; K57.30 Diverticulosis of large intestine without perforation or abscess without bleeding
CPT/HCPCS: 73700; 99214

== ENCOUNTER 2025-03-04 05:00 | Outpatient (RCR) | payer MEDICARE, OTHER, SELFPAY | END 2025-04-03 23:59 | disposition home or self-care (01) | LOC: TPT 05:00 | PROVIDERS: Visit Provider Student in an Organized Health Care Education/Training Program | DX: Z98.890 Other specified postprocedural states (principal) | CPT/HCPCS: 97110; 97161 ==

== ENCOUNTER → 2025-03-12 09:00 | Outpatient (BNVA) | payer MEDICARE, OTHER, SELFPAY | PROVIDERS: PCP Nurse Practitioner Family; Visit Provider Student in an Organized Health Care Education/Training Program | DX: S76.812A Strain of other specified muscles, fascia and tendons at thigh level, left thigh, initial encounter (principal); W01.0XXA Fall on same level from slipping, tripping and stumbling without subsequent striking against object, initial encounter | CPT/HCPCS: 99203 ==

== ENCOUNTER 2025-04-04 05:00 | Outpatient (RCR) | payer MEDICARE, OTHER, SELFPAY | END 2025-05-04 23:59 | disposition home or self-care (01) | LOC: TPT 05:00 | PROVIDERS: Visit Provider Student in an Organized Health Care Education/Training Program | DX: Z98.890 Other specified postprocedural states (principal) | CPT/HCPCS: 97110 ==

== ENCOUNTER 2025-05-05 06:30 | Outpatient (RCR) | payer MEDICARE, OTHER, SELFPAY | END 2025-05-14 10:12 | disposition home or self-care (01) | LOC: TPT 06:30 | PROVIDERS: PCP Nurse Practitioner Family; Visit Provider Student in an Organized Health Care Education/Training Program | DX: S76.012A Strain of muscle, fascia and tendon of left hip, initial encounter (principal); X58.XXXA Exposure to other specified factors, initial encounter | CPT/HCPCS: 97110 ==

== ENCOUNTER → 2025-05-07 09:43 | Outpatient (BNVA) | payer MEDICARE, OTHER, SELFPAY | PROVIDERS: PCP Nurse Practitioner Family; Visit Provider Student in an Organized Health Care Education/Training Program | DX: S76.812D Strain of other specified muscles, fascia and tendons at thigh level, left thigh, subsequent encounter (principal); X58.XXXD Exposure to other specified factors, subsequent encounter | CPT/HCPCS: 99213 ==

== ENCOUNTER → 2025-07-17 09:59 | Outpatient (BNVA) | payer MEDICARE, OTHER, SELFPAY | PROVIDERS: PCP Nurse Practitioner Family; Visit Provider Internal Medicine | DX: E03.8 Other specified hypothyroidism (principal); Z13.820 Encounter for screening for osteoporosis; E78.2 Mixed hyperlipidemia; E11.59 Type 2 diabetes mellitus with other circulatory complications; I25.10 Atherosclerotic heart disease of native coronary artery without angina pectoris; E11.22 Type 2 diabetes mellitus with diabetic chronic kidney disease; I12.9 Hypertensive chronic kidney disease with stage 1 through stage 4 chronic kidney disease, or unspecified chronic kidney disease; N18.30 Chronic kidney disease, stage 3 unspecified | CPT/HCPCS: 80053; 80061; 82043; 83036; 84439; 84443 ==